=== PATIENT | male | born 1950 | race Hispanic/Latino ===

== ENCOUNTER 2018-04-30 06:50 | Day surgery (SDC) | payer OTHER ==
[~2018-04-30] VITALS: Ht 177.8 cm; Wt 94.1 kg
[~2018-04-30 06:50] MED LIST: ASPI-555 PO; CARV6.25 PO; FURO40TA5 PO; LOSA50TA37 PO; LUBI8CAP PO; METF10004 PO; ROSU20TA30 PO
[2018-04-30] MEDS ORDERED: SODIUM CHLORIDE 0.9% 1000ML 1,000 ML IV ONE (07:05)
[2018-04-30 07:24] VITALS: BP 140/71
[2018-04-30] MEDS ORDERED: PROPOFOL 10 MG/ML 20ML VIAL IV ONE ×2 (08:05)
[2018-04-30] MEDS ORDERED: GLYCOPYRROLATE 0.2 MG/ML 5 ML VIAL ONE (08:06)
== END 2018-04-30 09:10 | disposition home or self-care (01) ==
LOC: ENDO 06:50 → DAH 06:50 → ENDO 09:10
PROVIDERS: ATTEND Internal Medicine Gastroenterology
DX: Z09 Encounter for follow-up examination after completed treatment for conditions other than malignant neoplasm (principal); D12.3 Benign neoplasm of transverse colon; D12.4 Benign neoplasm of descending colon; D12.5 Benign neoplasm of sigmoid colon; I50.9 Heart failure, unspecified; K64.0 First degree hemorrhoids; I11.0 Hypertensive heart disease with heart failure; E11.9 Type 2 diabetes mellitus without complications; I42.9 Cardiomyopathy, unspecified; I25.10 Atherosclerotic heart disease of native coronary artery without angina pectoris; Z79.84 Long term (current) use of oral hypoglycemic drugs; Z79.82 Long term (current) use of aspirin; Z79.899 Other long term (current) drug therapy; E78.5 Hyperlipidemia, unspecified; Z87.442 Personal history of urinary calculi; Z87.19 Personal history of other diseases of the digestive system
CPT/HCPCS: 45380; 45385; 82948 ×2; 88305; A4606; J2704 ×2; J3490; J7030

== ENCOUNTER → 2020-10-17 | Outpatient (CLI) | payer OTHER ==
[~2020-10-17] MED LIST changes: -ASPI-555 PO; +ASPI-556 PO; +ATOR-2 PO; -CARV6.25 PO; +CLOP75TA14 PO; +LISI-617 PO; -LOSA50TA37 PO; +METF-446 PO; -METF10004 PO; +METO25TA6 PO; +NITR0.4T50 SL; -ROSU20TA30 PO
== END | disposition home or self-care (01) ==
LOC: SHCH 10:39
PROVIDERS: ATTEND Internal Medicine Cardiovascular Disease
DX: I50.22 Chronic systolic (congestive) heart failure (principal); I21.9 Acute myocardial infarction, unspecified
CPT/HCPCS: 93306; 93356

== ENCOUNTER → 2021-01-31 | Outpatient (CLI) | payer OTHER ==
[~2021-01-31] MED LIST changes: -LISI-617 PO; +LISI-809 PO
== END | disposition home or self-care (01) ==
LOC: RAH 15:04
PROVIDERS: ATTEND Otolaryngology
DX: J34.2 Deviated nasal septum (principal); J32.9 Chronic sinusitis, unspecified; J34.89 Other specified disorders of nose and nasal sinuses
CPT/HCPCS: 70486

== ENCOUNTER → 2021-04-07 | Outpatient (CLI) | payer OTHER | END | disposition home or self-care (01) | LOC: SHCH 07:36 | PROVIDERS: ATTEND Internal Medicine Cardiovascular Disease | DX: I50.42 Chronic combined systolic (congestive) and diastolic (congestive) heart failure (principal) | CPT/HCPCS: 78481; A9512 ==

== ENCOUNTER 2021-05-30 07:20 | Day surgery (SDC) | payer OTHER ==
[2021-05-29 16:13] VITALS: BP 114/68
[2021-05-29 16:26] LABS: BASOPHILS % (AUTO) 0.4 % (0.0-5.0); EOSINOPHILS % (AUTO) 8.1 % (0.0-8.0); HEMATOCRIT 42.8 % (42-54); LYMPHOCYTES % (AUTO) 23.7 % (21.0-51.0); MEAN CORPUSCULAR HEMOGLOBIN 29.6 pg (27.0-33.0); MEAN CORPUSCULAR HGB CONC 31.8 g/dL (32.0-36.0); MEAN CORPUSCULAR VOLUME 93.2 fL (79-99); NEUTROPHILS % (AUTO) 58.5 % (40.0-77.0); PLATELET COUNT (AUTO) 168 K/uL (130-400); RED BLOOD CELL COUNT(AUTO) 4.59 MIL/uL (4.50-6.20); RED CELL DISTRIBUTION WIDTH 13.2 % (11.0-15.5); WHITE BLOOD COUNT (AUTO) 7.5 K/uL (4.8-10.8)
[2021-05-29 16:31] LABS: CREATININE 0.8 mg/dL (0.5-1.5); POTASSIUM 4.8 mmol/L (3.5-5.1)
[2021-05-29 16:34] LABS: INR 1.1 (0.85-1.15); PROTHROMBIN TIME 11.9 SEC (9.6-11.6)
[2021-05-29 16:35] LABS: PARTIAL THROMBOPLASTIN TIME 28.2 SEC (26.3-35.5)
[2021-05-30] VITALS (9 sets, daily range): BP systolic 107–122; BP diastolic 59–71
[~2021-05-30] VITALS: Ht 177.8 cm; Wt 90.1 kg
[~2021-05-30 07:20] MED LIST changes: +AEC81 PO; -ASPI-556 PO; -ATOR-2 PO; +ATOR40TA69 PO; -CLOP75TA14 PO; +CLOP75TA32 PO; +FLUT16H NASAL; -FURO40TA5 PO; -LISI-809 PO; -LUBI8CAP PO; -METF-446 PO; -METO25TA6 PO; +MULT-1258 PO; -NITR0.4T50 SL; +PANT40TA54 PO; +TAMS-1 PO
[2021-05-30] MEDS ORDERED: CEFAZOLIN SODIUM 1 GM VIAL IVP ONE (08:00)
[2021-05-30] MEDS ORDERED: 0.9%NACL 1000ML 1,000 ML IV SCH (08:00)
[2021-05-30] MEDS ORDERED: CEFAZOLIN SODIUM 1 GM VIAL ONE (10:24)
[2021-05-30] MEDS ORDERED: MEPERIDINE-PF 25 MG/ML SYG ONE ×2 (10:24→10:42)
[2021-05-30] MEDS ORDERED: BUPIVACAINE/PF 0.25% 30ML VIAL IJ ONE (10:24)
[2021-05-30] MEDS ORDERED: IOHEXOL-350 50ML VIAL IV ONE (10:24)
[2021-05-30] MEDS ORDERED: MIDAZOLAM HCL 1 MG/ML 2ML VIAL ONE ×2 (10:24→10:42)
[2021-05-30] MEDS ORDERED: LIDOCAINE HCL 1% MDV 50ML VIAL ONE (10:25)
[2021-05-30] MEDS ORDERED: TRAM50TA4 PO (11:38)
[2021-05-30] MEDS ORDERED: ACETAMINOPHEN WITH CODEINE 1 TAB TAB PO PRN (12:00)
[2021-05-30] MEDS ORDERED: IOHEXOL-350 75 ML VIAL IV ONE (12:55)
== END 2021-05-30 15:35 | disposition home or self-care (01) ==
LOC: DAH 07:20
PROVIDERS: ATTEND Internal Medicine Cardiovascular Disease
DX: I25.5 Ischemic cardiomyopathy (principal); I11.0 Hypertensive heart disease with heart failure; I50.42 Chronic combined systolic (congestive) and diastolic (congestive) heart failure; I25.2 Old myocardial infarction; E11.40 Type 2 diabetes mellitus with diabetic neuropathy, unspecified; I25.119 Atherosclerotic heart disease of native coronary artery with unspecified angina pectoris; I48.91 Unspecified atrial fibrillation; I49.1 Atrial premature depolarization; E78.5 Hyperlipidemia, unspecified; Z79.01 Long term (current) use of anticoagulants; Z79.82 Long term (current) use of aspirin; Z79.899 Other long term (current) drug therapy; Z95.2 Presence of prosthetic heart valve; Z87.891 Personal history of nicotine dependence
CPT/HCPCS: 33249; 36415; 71045; 80048; 85025; 85610; 85730; 93005; A4215; A4216; A4221; A4222; A4223 ×3; A4606; A4663; C1721; C1895; C1896; J0690; J2175 ×2; J2250 ×2; J3490 ×2; Q9967 ×2; 99156; 99157

== ENCOUNTER → 2021-10-18 | Outpatient (CLI) | payer OTHER ==
[~2021-10-18] MED LIST changes: +TRAM50TA4 PO
== END | disposition home or self-care (01) ==
LOC: SHCH 08:50
PROVIDERS: ATTEND Internal Medicine Cardiovascular Disease
DX: I25.5 Ischemic cardiomyopathy (principal); I08.0 Rheumatic disorders of both mitral and aortic valves; I11.9 Hypertensive heart disease without heart failure; E11.9 Type 2 diabetes mellitus without complications; E78.5 Hyperlipidemia, unspecified
CPT/HCPCS: 93306; 93356

== ENCOUNTER → 2023-06-14 | Outpatient (CLI) | payer OTHER | END | disposition home or self-care (01) | LOC: SHCH 09:29 | PROVIDERS: ATTEND Internal Medicine Cardiovascular Disease | DX: I25.5 Ischemic cardiomyopathy (principal); I10 Essential (primary) hypertension; E11.9 Type 2 diabetes mellitus without complications; E78.5 Hyperlipidemia, unspecified | CPT/HCPCS: 93306 ==

== ENCOUNTER → 2023-07-03 | Outpatient (CLI) | payer OTHER ==
[2023-07-03 12:16] LABS: CREATININE 0.9 mg/dL (0.5-1.5); POTASSIUM 4.8 mmol/L (3.5-5.1)
== END | disposition home or self-care (01) ==
LOC: LAB 09:03
PROVIDERS: ATTEND Internal Medicine Cardiovascular Disease
DX: E87.5 Hyperkalemia (principal)
CPT/HCPCS: 36415; 80048

== ENCOUNTER → 2024-06-16 | Outpatient (CLI) | payer OTHER | END | disposition home or self-care (01) | LOC: SHCH 12:17 | PROVIDERS: ATTEND Internal Medicine Cardiovascular Disease | DX: I77.9 Disorder of arteries and arterioles, unspecified (principal); I49.9 Cardiac arrhythmia, unspecified; I10 Essential (primary) hypertension; E11.9 Type 2 diabetes mellitus without complications; E78.5 Hyperlipidemia, unspecified; I25.10 Atherosclerotic heart disease of native coronary artery without angina pectoris; Z79.899 Other long term (current) drug therapy | CPT/HCPCS: 93880 ==

== ENCOUNTER 2024-08-29 09:16 | Observation (INO) | payer OTHER ==
[~2024-08-29] VITALS: Ht 177.8 cm; Wt 91.3 kg
[2024-08-29] MEDS: LACTATED RINGERS 1000ML 1,000 ML IV ONE (09:38)
[2024-08-29 09:43] LABS: BASOPHILS # (AUTO) 0.03 K/uL (0.00-0.20); BASOPHILS % (AUTO) 0.4 % (0.0-5.0); EOSINOPHILS # (AUTO) 0.58 K/uL (0.00-0.70); EOSINOPHILS % (AUTO) 6.8 % (0.0-8.0); HEMATOCRIT 48.1 % (42-54); IMMATURE GRANULOCYTE ABSOLUTE 0.02 K/uL (0-1); LYMPHOCYTES % (AUTO) 11.9 % (21.0-51.0); MEAN CORPUSCULAR HEMOGLOBIN 30.4 pg (27.0-33.0); MEAN CORPUSCULAR HGB CONC 32.8 g/dL (32.0-36.0); MEAN CORPUSCULAR VOLUME 92.5 fL (79-99); MONOCYTES # (AUTO) 0.8 K/uL (0.1-1.0); MONOCYTES % (AUTO) 9.3 % (3.0-13.0); NEUTROPHILS % (AUTO) 71.4 % (40.0-77.0); PLATELET COUNT (AUTO) 154 K/uL (130-400); RED CELL DISTRIBUTION WIDTH 13.3 % (11.0-15.5); WHITE BLOOD COUNT (AUTO) 8.5 K/uL (4.8-10.8)
[2024-08-29 10:09] LABS: CREATININE 0.8 mg/dL (0.5-1.3); POTASSIUM 3.9 mmol/L (3.5-5.1)
[2024-08-29 10:12] LABS: B-TYPE NATRIURETIC PEPTIDE 71 pg/mL (0-100)
[2024-08-29 10:13] LABS: MAGNESIUM 1.7 mg/dL (1.80-2.40)
[2024-08-29 10:14] LABS: INR 1.15 (0.85-1.15); PROTHROMBIN TIME 12.3 SEC (9.6-11.6)
[2024-08-29 10:15] LABS: PARTIAL THROMBOPLASTIN TIME 27.6 SEC (26.3-35.5)
[2024-08-29 11:59] LABS: APPEARANCE,URINE CLEAR (CLEAR); BILIRUBIN,URINE NEGATIVE (NEGATIVE); COLOR,URINE COLORLESS (YELLOW); GLUCOSE, URINE (UA) NEGATIVE (NEGATIVE); KETONES,URINE NEGATIVE (NEGATIVE); LEUKOCYTE ESTERASE ,URINE NEGATIVE Leu/uL (NEGATIVE); NITRATE,URINE NEGATIVE (NEGATIVE); OCCULT BLOOD,URINE NEGATIVE (NEGATIVE); PH,URINE 6.5 (5.0-8.0); PROTEIN,URINE NEGATIVE (NEGATIVE); UROBILINOGEN,URINE 0.2 mg/dL (0.2-1.0)
[2024-08-29 12:00] LABS: ADD UA MICROSCOPIC NO
[2024-08-29] MEDS: LORATAdine/pseudophEPHEDrine 5/120 MG 1 EACH TAB.SR.12H PO SCH (15:59)
[2024-08-29] MEDS: MAGNESIUM 2GM PREMIX 50ML 50 ML IV SCH (16:00)
[2024-08-29 16:40] VITALS: BP 142/77; PULSE 73; RESP 16; TEMP 97.4
[2024-08-29] MEDS ORDERED: TAMS-1 PO (17:11)
[2024-08-29] MEDS ORDERED: DAPA10TA PO (17:11)
[2024-08-29] MEDS ORDERED: ASPI-1005 PO (17:11)
[2024-08-29] MEDS ORDERED: OMEP40CA21 PO (17:11)
[2024-08-29] MEDS ORDERED: SACU1TAB7 PO (17:11)
[2024-08-29] MEDS ORDERED: CARV6.25 PO (17:11)
[2024-08-29] MEDS ORDERED: MONT-39 PO (19:51)
[2024-08-29 20:00] VITALS: BP 126/60; PULSE 76; RESP 18; TEMP 99
[2024-08-29 20:15] VITALS: O2SAT 95
[2024-08-30] VITALS: BP 126/68; PULSE 69; RESP 19; TEMP 97.6
[2024-08-30 04:00] VITALS: BP 159/63; PULSE 65; RESP 19; TEMP 97.5
[2024-08-30 08:00] VITALS: BP 126/78; PULSE 61; RESP 16; TEMP 97.6
[2024-08-30 08:22] VITALS: O2SAT 96
[2024-08-30 12:00] VITALS: BP 127/72; PULSE 79; RESP 16; TEMP 97.5
== END 2024-08-30 15:55 | disposition home or self-care (01) ==
LOC: EDH 09:16 → EDHIP 13:47 → UNDOADMIN 13:47 → INTOOBSV 13:48 → EDHIP 13:48 → 4CH 16:40
PROVIDERS: ADMIT Internal Medicine; ATTEND Internal Medicine
DX: R55 Syncope and collapse (principal); I25.10 Atherosclerotic heart disease of native coronary artery without angina pectoris; G89.29 Other chronic pain; E78.00 Pure hypercholesterolemia, unspecified; E11.9 Type 2 diabetes mellitus without complications; H81.10 Benign paroxysmal vertigo, unspecified ear; R51.9 Headache, unspecified; I10 Essential (primary) hypertension; I25.2 Old myocardial infarction; I25.5 Ischemic cardiomyopathy; Z79.82 Long term (current) use of aspirin; Z95.810 Presence of automatic (implantable) cardiac defibrillator; Z98.61 Coronary angioplasty status
CPT/HCPCS: 96361; 96365; 96366; 99285; 82550 ×4; 83735; 84484 ×4; 80061; 80048; 83880; 85025; 85610; 85730; 82948 ×3; 81003; 36415 ×2; 71045; 70450; 93005; 93306; G0378 ×25; J3475

== ENCOUNTER → 2025-05-04 | Outpatient (CLI) | payer OTHER ==
[~2025-05-04] MED LIST changes: -AEC81 PO; +ASPI-1005 PO; -ATOR40TA69 PO; +CARV6.25 PO; -CLOP75TA32 PO; +DAPA10TA PO; -FLUT16H NASAL; +MONT-39 PO; -MULT-1258 PO; +OMEP40CA21 PO; -PANT40TA54 PO; +SACU1TAB7 PO; -TAMS-1 PO; +TAMS-55 PO; -TRAM50TA4 PO
[2025-05-04] MEDS: REGADENOSON 0.4 MG/5 ML PF SYG IVP ONE (10:03)
--- NOTE | 2025-05-05 09:03 | HMCSR ---
APPROVED REPORT Height: 5 ft 8in Weight: 209 lbs TEST INDICATIONS CAD The imaging protocol used to acquire images was Rest Tc-99m/stress Tc-99m 1 day Consent: The procedure was explained and understood by the patient. Informerd consent was witnessed Demario Mota RN First, low dose rest was performed then high dose stress. RESTING DATA: The resting ekg shows: NSR Rest SPECT myocardial perfusion imaging was performed in supine position 80 minutes following the int ravenous injection of 10.3 mCi of Tc-99 Sestamibi. Time of rest injection: 08:20: Date: 05/04/2025 Time of rest imagin:40: Date: 05/04/2025 PHARMACOLOGIC STRESS: Pharmacologic stress test was performed by injecting regadenoson 0.4 mg IV push followed by the intra venous injection of 30.0 mCi of Tc-99 Sestamibi. Time of stress injection: 10:10: Date: 05/04/2025 Time of stress imagin:36: Date: 05/04/2025 Heart Rate at time of stress injection: 58 bpm. Gated Stress SPECT was performed 86 minutes after stress injection. The images were gated to evaluate regional wall motion and calculate left ventricular ejection fracti on. STRESS DETAILS Reason for Termination: Infusion complete Stress Symptoms: Dyspnea Max HR Achieved: 83 bpm % of APMHR Achieved: 57 Max Blood Pressure: 163/67 mmHg Stress ECG: NSR Study quality was fair. Lung uptake was Normal. Artifact: No artifact LEFT VENTRICLE The left ventricular ejection fraction was calculated to be 32%.TID = . IMPRESSION Abnormal pharmacologic nuclear stress test. Conclusion Abnormal [id number] stress test. Large sized, moderate severity inferolateral fixed defect. No reversible ischemia.
== END | disposition home or self-care (01) ==
LOC: SHCH 07:35
PROVIDERS: ATTEND Internal Medicine Cardiovascular Disease
DX: I25.10 Atherosclerotic heart disease of native coronary artery without angina pectoris (principal); R06.00 Dyspnea, unspecified; R94.39 Abnormal result of other cardiovascular function study
CPT/HCPCS: 78452; 93017; J2785; A9500 ×2

== ENCOUNTER → 2025-07-22 | Outpatient (CLI) | payer OTHER ==
[~2025-07-22] MED LIST changes: +IOHEXOL-350 75 ML VIAL IV ONE
--- NOTE | 2025-07-22 14:06 | HMCIMG ---
CT ABDOMEN/PELVIS W/CONTRAST HISTORY: Unspecified abdominal pain. COMPARISON: None. TECHNIQUE: Sequential axial images through abdomen and pelvis were performed. Patient was given 100 mL of Omnipaque IV. Coronal and sagittal reformats were obtained. FINDINGS: Lung bases: Clear. There is AICD in the right ventricle which is giving off a metallic artifact. Liver: Normal size and enhancement throughout. Portal vein: Patent. Gallbladder: Unremarkable. Spleen: Normal. Kidneys: Normal size and shape. There is a large exophytic cyst seen in the lower pole of the left kidney measuring 8 x 8 5 cm. There is also listhesis and upper to midpole of the left kidney exophytic measuring 3.1 x 3.8 cm. Adrenal glands: Normal Pancreas: Unremarkable. Stomach and small bowel: No inflammation or distention noted. Colon: Unremarkable. Appendix: Normal. Bladder: Partially distended and unremarkable. Reproductive system: The prostate and seminal vesicle appears to be normal.. Abdominal aorta: Normal caliber. There is atherosclerotic change abdominal aorta with calcified plaque. Skeletal: No acute abnormality. 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 IMPRESSION: No acute process noted.
== END | disposition home or self-care (01) ==
LOC: RAH 10:31
PROVIDERS: ATTEND Internal Medicine
DX: N28.1 Cyst of kidney, acquired (principal); N32.89 Other specified disorders of bladder; I70.0 Atherosclerosis of aorta; M47.816 Spondylosis without myelopathy or radiculopathy, lumbar region; R10.9 Unspecified abdominal pain
CPT/HCPCS: 74177; Q9967